=== PATIENT | male | born 1990 | race Caucasian/White ===

== ENCOUNTER 2021-12-06 17:13 | Emergency (ER) | payer BC, OTHER ==
--- OUTSIDE RECORDS SUMMARY | 2021-12-06 17:16 | XMS REPORT | Continuity of Care Document ---
:1990 Author Organization [facility] t Address [address] [place] [address] Care Team Providers Name Role Phone Hortensia Herman MD Primary Care Physician Millender Attending Clinician Unavailable Ralph Krishnan PA-C Attending Clinician Ralph KRISHNAN Attending Clinician Unavailable Varghese HOUSE Attending Clinician Rosa HOUSE Attending Clinician Jacky Attending Clinician Unavailable Payers Payer Name Policy Type Policy Number Effective Date Expiration Date S shayy STUDENT [employer]OURCES - [id number] [facility] ZZZOPEN ACCESS [id number] HMO/POS/EPO/PPO - AETNA Problems Condition Condition Condition Status Onset Resolution Last Treating Co mments Source Name Details Category Date Date Treatment Clinician Date Nephrolith Nephrolith Disease Active 2016-08 B shaun iasis iasis 2- College 00:00: of 00 Medicin e Pituitary Pituitary Disease Active [facility] lesion lesion 12-27 College (HCCode) (HCCode) 00:00: of 00 Medicin e Hypogonadi Hypogonadi Disease Active [facility] sm male sm male - College 00:00: of 00 Medicin e 097 - OTH Diagnosis Active 2014-10-21 [facility] UNSPEC SY 3-05 13:07:00 l 097 - 00:01: [place] OTH 00 UNSPEC SY Active 10/13/2014 [facility] Outpatient Imaging [facility] Kidney Problem Active [facility] Erectile Erectile Problem Active [facility] dysfunctio dysfunctio Niya kes - n, n, Memoria unspecifie unspecifie l d erectile d erectile Ou tpati dysfunctio dysfunctio en t n type n type Clinics Seasonal Seasonal Problem Active [facility] allergies allergies [facility] Itching Itching Problem Active [facility] Morbid Morbid Problem Active [facility] obesity obesity [facility] Body mass Body mass Problem Active [facility] index index [facility] - (BMI) (BMI) Memoria 45.0-49.9, 45.0-49.9, l adult adult [facility] Allergic Allergic Problem Active [facility] rhinitis, rhinitis, Luke s - unspecifie unspecifie Me moria d d l seasonalit seasonalit Ou tpati y, y, ent unspecifie unspecifie Cl inics d trigger d trigger Low Low Problem Active [facility] testostero testostero Niya kes - ne in male ne in male Me moria l [facility] Elevated Elevated Problem Active [facility] BP without BP without Niya kes - diagnosis diagnosis Heriberto howie of of l hypertensi hypertensi Ou tpati on on ent Clinics Pituitary Pituitary Problem Active [facility] adenoma adenoma [facility] Abnormal Abnormal Problem Active [facility] thyroid thyroid [facility] - function function [facility] a test test l [facility] GERD GERD Problem Active [facility] (gastroeso (gastroeso Niya kes - phageal phageal Memoria reflux reflux l disease) disease) Outpat i ent Clinics Erectile Erectile Problem Active [facility] dysfunctio dysfunctio Niya kes - n n [facility] Heart Heart Problem Active [facility] disease disease [facility] Body mass Body mass Problem Active [facility] index index [facility] - (BMI) (BMI) Memoria 40.0-44.9, 40.0-44.9, l adult adult [facility] Dietary Dietary Problem Active [facility] counseling counseling Niya kes - and and Memoria surveillan surveillan l ce ce [facility] Allergies, Adverse Reactions, Alerts Allergy Allergy Status Severity Reaction(s) Onset Inactive Treating Comm ents Source Name Type Date Date Clinician Meperidi Propensi Active Other - See Drops U nivers ne ty to comments 04-14 diastolic ity o f adverse 00:00: blood [place] reaction 00 pressure Medica l s Branch Morphine Propensi Active Swelling Univ ers ty to 04-14 ity of adverse 00:00: [place] reaction 00 Medical s Branch MORPHINE DRUG Active Swelling Univer s INGREDI 04-14 ity of 00:00: [place] 00 Medical Branch MEPERIDI DRUG Active Other-Cmnt Univ ers NE INGREDI 04-14 ity of 00:00: [place] 00 Medical Branch Opioid Propensi Active [facility] Analgesi ty to 06 [facility] cs adverse 00:00: of reaction 00 Medicin s to e drug Demerol Propensi Active Anaphylaxis [facility] ty to 02-03 [facility] adverse 00:00: of reaction 00 Medicin s to e drug Morphine Propensi Active Anaphylaxis [facility] ty to 02-03 [facility] adverse 00:00: of reaction 00 Medicin s to e drug NO KNOWN Drug Active Univers ALLERGIE Class ity [facility] [place] [facility] MORPHINE Adverse Active rash [facility] Reaction [facility] Demerol Adverse Active Info Not [facility] Reaction Available [facility] Social History Social Habit Start Date Stop Date Quantity Comments Source Alcohol intake 2021-11-30 2021-11-30 .14 /d [facility] Col lege of 00:00:00 00:00:00 Medicine Exposure to 2021-11-19 2021-11-29 Not sure [facility] Julian seaman of SARS-CoV-2 (event) 00:00:00 21:25:00 Medici ne Tobacco use and 2020-05-12 2020-05-12 Never used [facility] Co llege of exposure 00:00:00 00:00:00 Medicine Sex Assigned At [birth year] [facility] 00:00:00 00:00:00 Medical Branch Smoking Status Start Date Stop Date Source Unknown if ever smoked [facility] Never smoked tobacco [facility] Dot ege of Medicine Medications Ordered Filled Start Stop Current Ordering Indication Dosage Frequency Signature Comments Components Source Medication Medication Date Date Medication? Clinician (SIG) Name Name clomiPHENE Yes 50mg Take 1 [facility] (CLOMID) 50 4-22 Tablet by Col lege MG tablet 00:00: mouth of 00 daily. Medicin e tadalafil Yes TAKE ONE [facility] (CIALIS) 5 4-22 (1) College MG tablet 00:00: TABLET(S) of 00 BY MOUTH Medicin ONCE A e DAY. clomiPHENE 2020-0 Yes 50mg Take 1 [facility] (CLOMID) 50 9-17 Tablet by Col lege MG tablet 00:00: mouth of 00 daily. Medicin e tadalafil Yes TAKE ONE [facility] (CIALIS) 5 9-17 (1) College MG tablet 00:00: TABLET(S) of 00 BY MOUTH Medicin ONCE A e DAY. clomiPHENE 2020-0 Yes 50mg Take 1 [facility] (CLOMID) 50 9-17 Tablet by Col lege MG tablet 00:00: mouth of 00 daily. Medicin e tadalafil Yes TAKE ONE [facility] (CIALIS) 5 9-17 (1) College MG tablet 00:00: TABLET(S) of 00 BY MOUTH Medicin ONCE A e DAY. clomiPHENE 2021- No 50mg Take 1 [facility] (CLOMID) 50 9-17 04-22 Tablet by Co llege MG tablet 00:00: 00:00 mouth of 00 :00 daily. Medicin e tadalafil 2021- No TAKE ONE [facility] (CIALIS) 5 9-17 04-22 (1) College MG tablet 00:00: 00:00 TABLET(S) of 00 :00 BY MOUTH Medicin ONCE A e DAY. ibuprofen Yes [id number] 600mg Take 1 U nivers 600 mg 9-04 tablet by ity of tablet 00:00: mouth [place] 00 every 6 Medical (six) Branch hours as needed for Pain (scale 4-6). ibuprofen 0 Yes [id number] 600mg Take 1 U nivers 600 mg 9-04 tablet by ity of tablet 00:00: mouth [place] 00 every 6 Medical (six) Branch hours as needed for Pain (scale 4-6). anastrozole 2019-08- No 1mg Take 1 Tab Cuauhtemoc (ARIMIDEX) 004-27 by mouth Dot ege 1 MG tablet 00:00: 00:00 every 7 of 00 :00 days. Medicin e anastrozole 2019-08- No 1mg Take 1 Tab Cuauhtemoc (ARIMIDEX) 004-27 by mouth Dot ege 1 MG tablet 00:00: 00:00 every 7 of 00 :00 days. Medicin e clomiPHENE 2019-08 Yes 50mg Take 1 Tab [facility] (CLOMID) 50 0-02 by mouth Dot ege MG tablet 00:00: daily. of 00 Medicin e clomiPHENE 2019-08- No 50mg Take 1 Tab Cuauhtemoc (CLOMID) 50 0-02 -17 by mouth Col lege MG tablet 00:00: 00:00 daily. of 00 :00 Medicin e clomiPHENE 2019-08- No 50mg Take 1 Tab Cuauhtemoc (CLOMID) 50 0-02 - by mouth Col lege MG tablet 00:00: 00:00 daily. of 00 :00 Medicin e tadalafil Yes TAKE ONE [facility] (CIALIS) 5 - (1) College MG tablet 00:00: TABLET(S) of 00 BY MOUTH Medicin ONCE A e DAY. tadalafil 0 2020- No TAKE ONE [facility] (CIALIS) 5 9-04-27 (1) College MG tablet 00:00: 00:00 TABLET(S) of 00 :00 BY MOUTH Medicin ONCE A e DAY. tadalafil 2019-0 2020- No TAKE ONE [facility] (CIALIS) 5 -04-27 (1) College MG tablet 00:00: 00:00 TABLET(S) of 00 :00 BY MOUTH Medicin ONCE A e DAY. enalapril 2019-0 Yes TAKE ONE [facility] (VASOTEC) 5 9-03 (1) TABLET Co llege MG tablet 00:00: ONCE A DAY of 00 NEEDED Medicin FOR BP > e OR = 150/90. enalapril 2020-0 Yes TAKE ONE [facility] (VASOTEC) 5 9-03 (1) TABLET Co llege MG tablet 00:00: ONCE A DAY of 00 NEEDED Medicin FOR BP > e OR = 150/90. enalapril Yes TAKE ONE [facility] (VASOTEC) 5 04-13 (1) TABLET Co llege MG tablet 00:00: ONCE A DAY of 00 NEEDED Medicin FOR BP > e OR = 150/90. enalapril Yes TAKE ONE [facility] (VASOTEC) 5 9- (1) TABLET Co llege MG tablet 00:00: ONCE A DAY of 00 NEEDED Medicin FOR BP > e OR = 150/90. Enalapril Enalapril Yes Va [address] Maleate Maleate 04-13 Millender Luke s - 00:00: Memoria 00 l Outpati ent Clinics triamcinolo Yes 1 [facility] ne - applicatio [facility] 00:00: n to of 0.1 % cream 00 affected Medi aneta areas e Triamcinolo Triamcinolo Yes Va [address] [facility] ne ne 09-20 Millender applicatio Luke s - Acetonide Acetonide 00:00: n to Mem oria 00 affected l areas Outpati ent Clinics triamcinolo 0 2020- No 1 [facility] ne 09-[address] [facility] ([facility]) 00:00: 00:00 n to of 0.1 % cream 00 :00 affected Medi aneta areas e triamcinolo 2019-2020- No 1 [facility] ne 09-[address] ([facility]) 00:00: 00:00 n to of 0.1 % cream 00 :00 affected Medi aneta areas e clomiPHENE 2019- No 50mg Take 50 mg Cuauhtemoc (CLOMID) 50 8-08 18- by mouth Col lege MG tablet 19:51: 00:00 daily. of 27 :00 Medicin e clomiPHENE Yes 50mg Take 1 Tab [facility] (CLOMID) 50 8- by mouth Dot ege MG tablet 00:00: daily. of Medicin e tadalafil 2018- Yes 5mg Take 1 Tab [facility] (CIALIS) 5 8- by mouth Colle ge MG tablet 00:00: daily. of Medicin e clomiPHENE 2019-0 2020- No 50mg Take 1 Tab Cuauhtemoc (CLOMID) 50 805-12 by mouth Col lege MG tablet 00:00: 00:00 daily. of 00 :00 Medicin e amoxicillin Yes TK 1 T PO B [facility] -clavulanat 7-29 Q 12 H FOR Co llege e 00:00: 10 DAYS - of (AUGMENTIN) 00 TK WF Medicin 875-125 MG e per tablet methylPREDN Yes TK UTD [facility] ISolone 4 7-29 College MG TBPK 00:00: of 00 Medicin e ClomiPHENE ClomiPHENE Yes Va [address] Citrate Citrate [facility] Tadalafil Tadalafil Yes Va [address] Millender as needed [facility] ent [facility] Vital Signs Vital Name Observation Time Observation Value Comments Source Systolic blood 2021-11-30 14:18:00 134 mm[Hg] [facility] Diastolic blood 2021-11-30 14:18:00 86 mm[Hg] [facility] Heart rate 2021-11-30 14:18:00 93 /min [facility] Systolic blood 2021-04-27 14:20:00 138 mm[Hg] [facility] Diastolic blood 2021-04-27 14:20:00 88 mm[Hg] [facility] Heart rate 2021-04-27 14:20:00 91 /min [facility] Body temperature 2021-04-27 14:20:00 36.67 Evelyn [facility] Body height 2021-04-27 14:20:00 185.4 cm [facility] Body weight 2021-04-27 14:20:00 154.677 kg [facility] BMI 2021-04-27 14:20:00 44.99 kg/m2 [facility] Systolic blood 2021-04-14 16:36:00 152 mm[Hg] Melvin reynoldsy [facility] Diastolic blood 2021-04-14 16:36:00 97 mm[Hg] Malissa jyoti [facility] Heart rate 2021-04-14 16:36:00 103 /min [facility] ty [facility] Body temperature 2021-04-14 16:36:00 37.22 Evelyn [facility] ersity of [facility] Respiratory rate 2021-04-14 16:36:00 18 /min Univ ersity of [facility] Body height 2021-04-14 16:36:00 185.4 cm Universi ty of [facility] Body weight 2021-04-14 16:36:00 156.491 kg Universi ty of [facility] BMI 2021-04-14 16:36:00 45.52 kg/m2 Universi ty of [facility] Oxygen saturation in 2021-04-14 16:36:00 98 /min [facility] Arterial blood by [facility] Pulse oximetry Branch Systolic blood 2020-05-12 15:45:00 125 mm[Hg] [facility] of pressure Medicine Diastolic blood 2020-05-12 15:45:00 80 mm[Hg] [facility] pressure Medicine Heart rate 2020-05-12 15:45:00 79 /min [facility] ollege of [facility] Body temperature 2020-05-12 15:45:00 36.78 Evelyn [facility] Respiratory rate 2020-05-12 15:45:00 16 /min [facility] Body height 2020-05-12 15:45:00 [facility].4 [facility] Body weight 2020-05-12 15:45:00 149.687 [facility] BMI 2020-05-12 15:45:00 43.54 kg/m2 [facility] Systolic blood 2019-03-11 19:36:00 131 mm[Hg] [facility] of pressure Medicine Diastolic blood 2019-03-11 19:36:00 77 mm[Hg] [facility] of pressure Medicine Heart rate 2019-03-11 19:36:00 82 /min [facility] ollege of Medicine Body height 2019-03-11 19:36:00 185.4 cm [facility] Body weight 2019-03-11 19:36:00 146.965 kg [facility] BMI 2019-03-11 19:36:00 42.75 kg/m2 [facility] Procedures Procedure Date / Time Performed Performing Clinician Sourc e POCT URINALYSIS 2021-04-27 00:00:00 Jaylen Krishnan [facility] Flavia bower of DIPSTICK Medicine CT ABDOMEN PELVIS WO 2021-04-14 17:55:25 Andra Dawson [facility] CONTRAST Medical Branch COMP. METABOLIC PANEL 2021-04-14 17:42:00 Andra Dawson [facility] ([id number]) Medical Branch CBC WITH DIFF 2021-04-14 17:42:00 Andra Dawson [facility] Medical Branch URINALYSIS 2021-04-14 17:32:00 Andra Dawson [facility] Medical Branch NOTICE OF PRIVACY 2021-04-14 16:21:24 Doctor Unassigned, No [facility] PRACTICES Name Medical Branch CONSENT/REFUSAL FOR 2021-04-14 16:21:07 Doctor Unassigned, No [facility] DIAGNOSIS AND Name Medical Branch TREATMENT Plan of Care Planned Activity Planned Date Details Comments Source Future Scheduled 2021-12-14 TESTOSTERONE-TOTAL(URO Expected: [facility] College Test 00:00:00 DEPT) [code = 2986-8] 12/14/2021 of Med icine (Approximate), Expires: 12/30/2021 Future Scheduled 2021-12-14 SENSITIVE Expected: [facility] Dot ege Test 00:00:00 ESTRADIOL,MALE(URO 12/14/2021 of Medici ne DEPT) [code = 2243-4] (Approximate), Expires: 12/30/2021 Future Scheduled 2021-11-30 COVID-19 Vaccine (1) [facility] Test 09:26:20 [code = COVID-19 of Medicine Vaccine (1)] Future Scheduled 2021-11-30 TETANUS SHOT (ADULT) [facility] Test 09:26:20 [code = TETANUS SHOT of Medi cine (ADULT)] Future Scheduled 2021-11-30 BMI FOLLOW UP PLAN [facility] College Test 09:26:20 [code = BMI FOLLOW UP of Med icine PLAN] Future Scheduled 2021-11-30 Hepatitis C screening Ba [facility] College Test 09:26:20 (procedure) [code = of Medic ine 093876706] Future Scheduled 2021-11-30 Human immunodeficiency [facility] Test 09:26:20 virus screening of Medicine (procedure) [code = 533783078] Future Scheduled 2021-11-30 FLU VACCINE > 6 MONTHS B [facility] College Test 09:26:20 [code = FLU VACCINE > 6 of edicine MONTHS] Future Scheduled 2021-11-30 HEMOGLOBIN AND Ordered: [facility] Co llege Test 09:06:27 HEMATOCRIT, BLOOD [code 11/30/2021 of M edicine = 26099-5] Diagnostic Test 2021-05-11 TESTOSTERONE-TOTAL(URO Expected: [facility] Pending 00:00:00 DEPT) [code = 2986-8] 05/11/2021 of Med icine (Approximate), Expires: 05/27/2021 Diagnostic Test 2021-05-11 SENSITIVE Expected: [facility] ge Pending 00:00:00 ESTRADIOL,MALE(URO 05/11/2021 of Medici ne DEPT) [code = 2243-4] (Approximate), Expires: 05/27/2021 Future Scheduled 2021-05-11 TESTOSTERONE-TOTAL(URO Expected: [facility] Test 00:00:00 DEPT) [code = 2986-8] 05/11/2021 of Med icine (Approximate), Expires: 05/27/2021 Future Scheduled 2021-05-11 SENSITIVE Expected: [facility] ege Test 00:00:00 ESTRADIOL,MALE(URO 05/11/2021 of Medici ne DEPT) [code = 2243-4] (Approximate), Expires: 05/27/2021 Future Scheduled 2021-04-27 COVID-19 Vaccine (1) [facility] Test 09:38:58 [code = COVID-19 of Medicine Vaccine (1)] Future Scheduled 2021-04-27 TETANUS SHOT (ADULT) [facility] Test 09:38:58 [code = TETANUS SHOT of Medi cine (ADULT)] Future Scheduled 2021-04-27 BMI FOLLOW UP PLAN [facility] Test 09:38:58 [code = BMI FOLLOW UP of Med icine PLAN] Future Scheduled 2021-04-27 Hepatitis C screening [facility] Test 09:38:58 (procedure) [code = of Medic ine 767920640] Future Scheduled 2021-04-27 Human immunodeficiency B [facility] Test 09:38:58 virus screening of Medicine (procedure) [code = 049639266] Future Scheduled 2021-04-27 FLU VACCINE > 6 MONTHS B [facility] Test 09:38:58 [code = FLU VACCINE > 6 of edicine MONTHS] Future Scheduled 2021-04-27 COVID-19 Vaccine (1) [facility] Test 09:38:58 [code = COVID-19 of Medicine Vaccine (1)] Future Scheduled 2021-04-27 TETANUS SHOT (ADULT) [facility] Test 09:38:58 [code = TETANUS SHOT of Medi cine (ADULT)] Future Scheduled 2021-04-27 BMI FOLLOW UP PLAN [facility] Test 09:38:58 [code = BMI FOLLOW UP of Med icine PLAN] Future Scheduled 2021-04-27 Hepatitis C screening [facility] Test 09:38:58 (procedure) [code = of Medic ine 352681848] Future Scheduled 2021-04-27 Human immunodeficiency B [facility] Test 09:38:58 virus screening of Medicine (procedure) [code = 098850749] Future Scheduled 2021-04-27 FLU VACCINE > 6 MONTHS B [facility] Test 09:38:58 [code = FLU VACCINE > 6 of edicine MONTHS] Future Scheduled 2021-04-27 BUN/CREATININE RATIO Ordered: [facility] Test 09:36:30 W/EGFR [code = NOCPT] 04/27/2021 of Med icine Future Scheduled 2021-04-27 BUN/CREATININE RATIO Ordered: [facility] Test 09:36:30 W/EGFR [code = NOCPT] 04/27/2021 of Med icine Future Scheduled 2021-04-27 HEMOGLOBIN AND Ordered: [facility] llege Test 09:27:47 HEMATOCRIT, BLOOD [code 04/27/2021 of edicine = 45317-2] Future Scheduled 2021-04-27 HEMOGLOBIN AND Ordered: [facility] llege Test 09:27:47 HEMATOCRIT, BLOOD [code 04/27/2021 of edicine = 60622-3] Future Scheduled TESTOSTERONE, Ordered: [facility] lege Test FREE/TOTAL SHGB [code = 03/11/2019 of edicine NOCPT] Future Scheduled ESTRADIOL [code = Ordered: [facility] Test 2243-4] 03/11/2019 of Medicine Future Scheduled HEMOGLOBIN AND Ordered: [facility] Co llege Test HEMATOCRIT, BLOOD [code 03/11/2019 of M edicine = 80576-8] Future Scheduled TETANUS SHOT (ADULT) [facility] Test [code = TETANUS SHOT of Medi cine (ADULT)] Future Scheduled BMI FOLLOW UP PLAN [facility] Test [code = BMI FOLLOW UP of Med icine PLAN] Future Scheduled HIV SCREENING [code = [facility] Test HIV SCREENING] of Medicine Future Scheduled FLU VACCINE > 6 MONTHS [facility] Test [code = FLU VACCINE > 6 of M edicine MONTHS] Future Scheduled TESTOSTERONE [code = Ordered: [facility] [employer] Test 2986-8] 05/12/2020 of Medicine Future Scheduled HEMOGLOBIN AND Ordered: [facility] llege Test HEMATOCRIT, BLOOD [code 05/12/2020 of M edicine = 87420-0] Future Scheduled ESTRADIOL [code = Ordered: [facility] College Test 2243-4] 05/12/2020 of Medicine Future Scheduled TETANUS SHOT (ADULT) [facility] [employer] Test [code = TETANUS SHOT of Medi cine (ADULT)] Future Scheduled BMI FOLLOW UP PLAN [facility] Test [code = BMI FOLLOW UP of Med icine PLAN] Future Scheduled HEPATITIS C SCREENING [facility] [employer] Test [code = HEPATITIS C of Medic ine SCREENING] Future Scheduled HIV SCREENING [code = [facility] [employer] Test HIV SCREENING] of Medicine Future Scheduled FLU VACCINE > 6 MONTHS [facility] Test [code = FLU VACCINE > 6 of M edicine MONTHS] Future Scheduled ZOSTER VACCINE (1 of 2) [facility] College Test [code = ZOSTER VACCINE of Me dicine (1 of 2)] Encounters Start End Encounter Admission Attending Care Care Encounter Source Date/Time Date/Time Type Type Clinicians Facility Department ID 2021-09-[address] [id number] [place] [address] [facility] 2021-09-05 Outpatient Constanza [facility] [id number] [place]:23 [place] [address] [facility] 2021-09-05 Outpatient Constanza [facility] [id number] 11:06:34 [place] [address] [facility] 2021-11-30 2021-11-30 Office JEREMY Krishnan [id number] [facility] 09:00:00 09:26:25 Visit Jaylen Rosas AMBULATOR [id number] College Y [id number] of [id number] Medi aneta 300 e 2021-04-27 2021-04-27 Office JEREMY KRISHNAN [id number] [facility] 09:13:18 10:05:41 Visit JYALEN AMBULATOR [id number] College Y [id number] of [id number] Medi aneta 300 e 2021-04-14 2021-04-14 Emergency Dawson, [facility] [id number] Univers 11:38:00 15:16:00 Andra Wilde 350.1.13.10 i ty of [place] 4.2.7.2.686 [facility] [id number] [facility] 084 Branch 2021-04-14 2021-04-14 Emergency X [facility] ERT [id number] Univers 11:20:00 11:20:00 ity of [facility] 2020-05-12 2020-05-12 Office JEREMY Krishnan [id number] [facility] 10:32:53 11:14:44 Visit Jaylen Rosas AMBULATOR [id number] College Y [id number] of [id number] [facility] aneta 300 e 2020-04-18 2020-04-18 [facility] [id number] 16:34:00 16:34:00 [facility] Medicine Medicine Outpati ent Clinics 2020-04-13 2020-04-13 [facility] [id number] 16:20:00 16:20:00 [facility] Medicine l Medicine Outpati ent Clinics 2019-10-19 2019-10-19 [facility] [id number] 08:45:00 08:45:00 [facility] Medicine Outpati ent Clinics 2019-09-20 2019-09-20 [facility] [id number] 08:00:00 08:00:00 [facility] Family Medicine l Medicine Outpati ent Clinics 2019-03-11 2019-03-11 Office JEREMY Lee [id number] [place] [address] 14:09:24 14:19:24 Visit Benito AMBULATOR [id number] College Y [id number] of [id number] [facility] 300 e 2016-12-10 2016-12-10 Outpatient IE MARY JO [id number] [facility] 08:00:00 08:00:00 01 l Matthew 2014-10-21 2014-10-22 Outpt Diag nullFlavo [facility] [id number] [facility] 17:57:00 04:59:00 Services r Outpatient 00 l [facility] Results Test Description Test Time Test Comments Results Result Comments Source POCT URINALYSIS DIPSTICK 2021-04-27 00:00:00 Test Item Value Reference Range Interpretation Comme nts COLOR UA (test code = 5778-6) Yellow YELLOW/STRAW CLARITY UA (test code = 90654-9) Clear CLEAR GLUCOSE UA (test code = 5792-7) Negative NEGATIVE BILIRUBIN UA (test code = 5770-3) Negative NEGATIVE KETONES UA (test code = 36878-7) Negative NEGATIVE SPECIFIC GRAVITY UA (test code = 5811-5) 1.005-1.035 BLOOD UA (test code = 5794-3) Negative NEGATIVE PH UA (test code = 5803-2) 5.0-9.0 PROTEIN UA (test code = 5804-0) Trace NEGATIVE UROBILINOGEN UA (test code = 5818-0) 0.02 E.U/DL NORMAL MG/DL LEUKOCYTE ESTERASE UA (test code = 5799-2) Negative NEGATIVE NITRITE UA (test code = 5802-4) Negative NEGATIVE REDUCING SUBSTANCES URINE (test code = 36764-3) NA [facility]GATI VE [facility] [id number] 00:00:00 Test Item Value Reference Range Interpretation Comments COLOR UA (test code = 5778-6) Yellow YELLOW/STRAW CLARITY UA (test code = 86134-2) Clear CLEAR GLUCOSE UA (test code = 5792-7) Negative NEGATIVE BILIRUBIN UA (test code = 5770-3) Negative NEGATIVE KETONES UA (test code = 32428-8) Negative NEGATIVE SPECIFIC GRAVITY UA (test code = 1.005-1.035 5811-5) BLOOD UA (test code = 5794-3) Negative NEGATIVE PH UA (test code = 5803-2) 5.0-9.0 PROTEIN UA (test code = 5804-0) Trace NEGATIVE UROBILINOGEN UA (test code = 0.02 E.U/DL NORMAL MG/DL 5818-0) LEUKOCYTE ESTERASE UA (test code Negative NEGATIVE = 5799-2) NITRITE UA (test code = 5802-4) Negative NEGATIVE REDUCING SUBSTANCES URINE (test NA NEGATIVE code = 20076-8) [facility] [id number] 19:58:23No acute inflammatory or obstructive process identified in the abdomen orpelvis. RL: [id number] AFC: [id number] End of report ORDERING CLINICIAN: ANDRA DAWSON TECHNIQUE: Multidetector helical scanning of the abdomen and pelvis wasperformed without IV or oral contrast. The lack of contrast limitsevaluation of the solid organs, vasculature and GI tract. Coronal andsagittal reformations were obtained. CT scan was performed according to the ALARA (aslow as reasonablyachievable) principal. INDICATION: Abdominal pain COMPARISON:None DISCUSSION:The lung bases are clear. The liver, adrenal glands, gallbladder, spleen,pancreas, kidneys and stomach are unremarkable in their CT appearance. There is no evidence of active colonic or small bowel inflammation orobstruction. The pancreas has been removed. The pelvic organs are unremarkable. There is no pelvic mass or free fluid. There are no acute or suspicious osseous abnormalities. ? [facility], Radiant Results Inft User - 04/14/2021 2:59 PM CDT ORDERING CLINICIAN: ANDRA DAWSONTECHNIQUE: Multidetector helical scanning of the abdomen and pelvis wasperformed without IV or oral contrast. The lack of contrast limitsevaluation of the solid organs, v asculature and GI tract. Coronal andsagittal reformations were obtained.CT scan was performed according to the ALARA (as low as reasonablyachievable) principal.INDICATION: Abdominal painCOMPARISON:NoneDISCUSSION:The lung bases are clear. The liver, adrenal glands, gallbladder, spleen,pancreas, kidneysand stomach are unremarkable in their CT appearance.There is no evidence of active colonic or small bowel inflammation orobstruction. The pancreas has been removed.The pelvic organs are unremarkable. There is no pelvic mass or free fluid.There are no acute or suspicious osseous abnormalities. IMPRESSIONNo acute inflammatory or obstructive process identified in the abdomen orpelvis.RL: [id number]: [id number] of report [facility] WO [id number] 19:58:23No acute inflammatory or obstructive process identified in the abdomen orpelvis. RL: 6190 AFC: [id number] End of report ORDERING CLINICIAN: ANDRA DAWSON TECHNIQUE: Multidetector helical scanning of the abdomen and pelvis wasperformed without IV or oral contrast. The lack of contrast limitsevaluation of the solid organs, vasculature and GI tract. Coronal andsagittal reformations were obtained. CT scan was performed according to the ALARA (aslow as reasonablyachievable) principal. INDICATION: Abdominal pain COMPARISON:None DISCUSSION:The lung bases are clear. The liver, adrenal glands, gallbladder, spleen,pancreas, kidneys and stomach are unremarkable in their CT appearance. There is no evidence of active colonic or small bowel inflammation orobstruction. The pancreas has been removed. The pelvic organs are unremarkable. There is no pel kristy mass or free fluid. There are no acute or suspicious osseous abnormalities. ? [facility], Radiant Results Inft User - 04/14/2021 2:59 PM CDT ORDERING CLINICIAN: ANDRA DAWSONTECHNIQUE: Multidetector helical scanning of the abdomen and pelvis w asperformed without IV or oral contrast. The lack of contrast limitsevaluation of the solid organs, vasculature and GI tract. Coronal andsagittal reformations were obtained.CT scan was performed according to the ALARA (as low as reasonablyachievable) principal.INDICATION: Abdominal painCOMPARISON:NoneD ISCUSSION:The lung bases are clear. The liver, adrenal glands, gallbladder, spleen,pancreas, kidneysand stomach are unremarkable in their CT appearance.There is no evidence of active colonic or small bowel inflammation orobstruction. The pancreas has been removed.The pelvic organs are unremarkable. There is no pelvic mass or free fluid.There are no acute or suspicious osseous abnormalities. IMPRESSIONNo acute inflammatory or obstructive process identified in the abdomen orpelvis.RL: 6190AF: [id number] of report [facility] METABOLIC PANEL ([id number])2021-04-14 18:12:37 Test Item Value Reference Range Interpretation Comments NA (test code = 137 mmol/L 135-145 4775081250) K (test code = 3.9 mmol/L 3.5-5.0 8507738482) CL (test code = 102 mmol/L 98-108 1279365810) CO2 TOTAL (test code = 26 mmol/L 23-31 5018364496) AGAP (test code = 2-16 6167299580) BUN (test code = 13 mg/dL 7-23 6732176355) GLUCOSE (test code = 82 mg/dL 70-110 8075184727) CREATININE (test code = 1.27 mg/dL 0.60-1.25 H 5764898280) TOTAL BILI (test code = 0.4 mg/dL 0.1-1.5 5594884039) CALCIUM (test code = 9.5 mg/dL 8.6-10.6 6563781363) T PROTEIN (test code = 7.5 g/dL 6.3-8.2 5670288761) ALBUMIN (test code = 4.4 g/dL 3.5-5.0 5509792255) ALK PHOS (test code = 49 U/L 34-122 3902664244) ALTv (test code = 36 U/L 5-50 1742-6) AST(SGOT) (test code = 37 U/L 13-40 3490056082) eGFR (test code = mL/min/1.73m2 3741431923) MEJIA (test code = MEJIA) Association of Glomerular Filtration Rate (GFR) and Staging of Kidney Disease* + --+ --+ ------+| GFR (mL/min/1.73 m2) ?| With Kidney Damage ?| ?Without Kidney Damage+ --------+ --------+ +| ?>90 ?| ?Stage one ?| ? Normal ?+ ---+ ---+ -------+| ?60-89 ?| ?Stage two ?| ? Decreased GFR ? + --+ --+ ------+| ?30-59 ?| ?Stage three ?| ? Stage three ? + --+ --+ ------+| ?15-29 ?| ?Stage four ? | ? Stage four ?+ ---+ ---+ -------+| ?<15 (or dialysis) ? ?| ?Stage five ? | ? Stage five ?+ ---+ ---+ -------+ *Each stage assumes the associated GFR level has been in effect for at least three months. ?Stages 1 to 5, with or without kidney disease, indicate chronic kidney disease. Notes: Determination of stages one and two (with eGFR >59mL/min/1.73 m2) requires estimation of kidney damage for at least three months as defined by structural or functional abnormalities of the kidney, manifested by either:Pathological abnormalities or Markers of kidney damage (including abnormalities in the composition of the blood or urine or abnormalities in imaging tests). Lab Interpretation Abnormal (test code = 24542-2) [facility]. METABOLIC PANEL ([id number])2021-04-14 18:12:37 Test Item Value Reference Range Interpretation Comments NA (test code = 137 mmol/L 135-145 0414152360) K (test code = 3.9 mmol/L 3.5-5.0 7059086175) CL (test code = 102 mmol/L 98-108 3843557987) CO2 TOTAL (test code = 26 mmol/L 23-31 1969887445) AGAP (test code = 2-16 3108253287) BUN (test code = 13 mg/dL 7-23 1522811675) GLUCOSE (test code = 82 mg/dL 70-110 1411078600) CREATININE (test code = 1.27 mg/dL 0.60-1.25 H 7047626431) TOTAL BILI (test code = 0.4 mg/dL 0.1-1.5 8929072136) CALCIUM (test code = 9.5 mg/dL 8.6-10.6 0890643017) T PROTEIN (test code = 7.5 g/dL 6.3-8.2 5733906134) ALBUMIN (test code = 4.4 g/dL 3.5-5.0 0826449962) ALK PHOS (test code = 49 U/L 34-122 6131639320) ALTv (test code = 36 U/L 5-50 1742-6) AST(SGOT) (test code = 37 U/L 13-40 0828241396) eGFR (test code = mL/min/1.73m2 3808686535) MEJIA (test code = MEJIA) Association of Glomerular Filtration Rate (GFR) and Staging of Kidney Disease* + --+ --+ ------+| GFR (mL/min/1.73 m2) ?| With Kidney Damage ?| ?Without Kidney Damage+ --------+ --------+ +| ?>90 ?| ?Stage one ?| ? Normal ?+ ---+ ---+ -------+| ?60-89 ?| ?Stage two ?| ? Decreased GFR ? + --+ --+ ------+| ?30-59 ?| ?Stage three ?| ? Stage three ? + --+ --+ ------+| ?15-29 ?| ?Stage four ? | ? Stage four ?+ ---+ ---+ -------+| ?<15 (or dialysis) ? ?| ?Stage five ? | ? Stage five ?+ ---+ ---+ -------+ *Each stage assumes the associated GFR level has been in effect for at least three months. ?Stages 1 to 5, with or without kidney disease, indicate chronic kidney disease. Notes: Determination of stages one and two (with eGFR >59mL/min/1.73 m2) requires estimation of kidney damage for at least three months as defined by structural or functional abnormalities of the kidney, manifested by either:Pathological abnormalities or Markers of kidney damage (including abnormalities in the composition of the blood or urine or abnormalities in imaging tests). Lab Interpretation Abnormal (test code = 35605-7) [facility] [id number] 18:00:00 Test Item Value Reference Range Interpretation Comments APPEARANCE (test code = Clear Clear 5965652636) COLOR (test code = Straw Yellow A 4482052100) PH (test code = 4.8-8.0 4058944555) SP GRAVITY (test code = 1.003-1.030 8770499706) GLU U QUAL (test code = Normal Normal 0957778323) BLOOD (test code = 2+ Negative A 6069741372) KETONES (test code = Negative Negative 3785952160) PROTEIN (test code = Negative Negative 2887-8) UROBILIN (test code = Normal Normal 3857091901) BILIRUBIN (test code = Negative Negative 7508631289) NITRITE (test code = Negative Negative 9152699767) LEUK MICHAEL (test code = 75/uL Negative A 7870751745) RBC/HPF (test code = See_Comment H [Autom ated message] 3522326717) The system mySB[employer] generated this result transmitted ref erence range: 0 - 3 HP F. The reference range was not used to int erpret this result as normal/abnormal . WBC/HPF (test code = See_Comment H [Autom ated message] 5027746672) The system [employer]SB[employer] generated this result transmitted ref erence range: 0 - 5 HP F. The reference range was not used to int erpret this result as normal/abnormal . BACTERIA (test code = Few Negative A 9807532541) SQ EPITH (test code = <1 HPF 1938585607) TRANS EPI (test code = <1 See_Comment [Aut omated message] 6763537706) The system [employer]SB[employer] generated this result transmitted ref erence range: <=1 HPF. The reference range was not used to int erpret this result as normal/abnormal . Lab Interpretation (test Abnormal code = 71186-0) [facility] Test Item Value Reference Range Interpretation Comments APPEARANCE (test code = Clear Clear 1685716036) COLOR (test code = Straw Yellow A 7861531844) PH (test code = 4.8-8.0 2077048364) SP GRAVITY (test code = 1.003-1.030 9879793287) GLU U QUAL (test code = Normal Normal 7414365738) BLOOD (test code = 2+ Negative A 8349235876) KETONES (test code = Negative Negative 7449091735) PROTEIN (test code = Negative Negative 2887-8) UROBILIN (test code = Normal Normal 9334015957) BILIRUBIN (test code = Negative Negative 8206498531) NITRITE (test code = Negative Negative 5446914743) LEUK MICHAEL (test code = 75/uL Negative A 3170085784) RBC/HPF (test code = See_Comment H [Autom ated message] 8686870259) The system [employer]SB[employer] generated this result transmitted ref erence range: 0 - 3 HP F. The reference range was not used to int erpret this result as normal/abnormal . WBC/HPF (test code = See_Comment H [Autom ated message] 3353178960) The system [employer]SB[employer] generated this result transmitted ref erence range: 0 - 5 HP F. The reference range was not used to int erpret this result as normal/abnormal . BACTERIA (test code = Few Negative A 4803962771) SQ EPITH (test code = <1 HPF 5242725926) TRANS EPI (test code = <1 See_Comment [Aut omated message] 4123332479) The system mySB[employer] generated this result transmitted ref erence range: <=1 HPF. The reference range was not used to int erpret this result as normal/abnormal . Lab Interpretation (test Abnormal code = 40670-0) [facility] WITH [id number] 17:53:36 Test Item Value Reference Range Interpretation Comments WBC (test code = See_Comment H [Automated 6690-2) message] The sy stem which generated this result transmitted reference range : 4.20 - 10.70 10*3/?L. The reference range was not used to interpret this result as normal/abnormal . RBC (test code = See_Comment [Automated 789-8) message] The sy stem which generated this result transmitted reference range : 4.26 - 5.52 10*6/?L. The reference range was not used to interpret this result as normal/abnormal . HGB (test code = 15.0 g/dL 12.2-16.4 718-7) HCT (test code = 43.0 % 38.4-49.3 4544-3) MCV (test code = 79.5 fL 81.7-95.6 L 787-2) MCH (test code = 27.7 pg 26.1-32.7 785-6) MCHC (test code = 34.9 g/dL 31.2-35.0 786-4) RDW-SD (test code = 35.6 fL 38.5-51.6 L 75733-8) RDW-CV (test code = 12.6 % 12.1-15.4 788-0) PLT (test code = See_Comment [Automated 777-3) message] The sy stem which generated this result transmitted reference range : 150 - 328 10*3/ ?L. The reference r patricia was not used to interpret this result as normal/abnormal . MPV (test code = 10.8 fL 9.8-13.0 29867-3) NRBC/100 WBC (test See_Comment [Automat ed code = 1147375883) message] The system which generated this result transmitted reference range : 0.0 - 10.0 /100 WBCs. The refer ence range was not u sed to interpret th is result as normal/abnormal . NRBC x10^3 (test code <0.01 See_Comment [Auto mated = 3683248577) message] The s ystem which generated this result transmitted reference range : 10*3/?L. The reference range was not used to interpret this result as normal/abnormal . GRAN MAT (NEUT) % 59.8 % (test code = 770-8) IMM GRAN % (test code 0.50 % = 2268012432) LYMPH % (test code = 29.5 % 736-9) MONO % (test code = 8.4 % 5905-5) EOS % (test code = 1.3 % 713-8) BASO % (test code = 0.5 % 706-2) GRAN MAT x10^3(ANC) 6.59 10*3/uL 1.99-6.95 (test code = 3224943103) IMM GRAN x10^3 (test 0.05 10*3/uL 0.00-0.06 code = 5471013813) LYMPH x10^3 (test code 3.24 10*3/uL 1.09-3.23 H = 731-0) MONO x10^3 (test code 0.92 10*3/uL 0.36-1.02 = 742-7) EOS x10^3 (test code = 0.14 10*3/uL 0.06-0.53 711-2) BASO x10^3 (test code 0.05 10*3/uL 0.01-0.09 = 704-7) Lab Interpretation Abnormal (test code = 28152-0) [facility] WITH [id number] 17:53:36 Test Item Value Reference Range Interpretation Comments WBC (test code = See_Comment H [Automated 0790-2) message] The sy stem which generated this result transmitted reference range : 4.20 - 10.70 10*3/?L. The reference range was not used to interpret this result as normal/abnormal . RBC (test code = See_Comment [Automated 789-8) message] The sy stem which generated this result transmitted reference range : 4.26 - 5.52 10*6/?L. The reference range was not used to interpret this result as normal/abnormal . HGB (test code = 15.0 g/dL 12.2-16.4 718-7) HCT (test code = 43.0 % 38.4-49.3 4544-3) MCV (test code = 79.5 fL 81.7-95.6 L 787-2) MCH (test code = 27.7 pg 26.1-32.7 785-6) MCHC (test code = 34.9 g/dL 31.2-35.0 786-4) RDW-SD (test code = 35.6 fL 38.5-51.6 L 23373-9) RDW-CV (test code = 12.6 % 12.1-15.4 788-0) PLT (test code = See_Comment [Automated 777-3) message] The sy stem which generated this result transmitted reference range : 150 - 328 10*3/ ?L. The reference r patricia was not used to interpret this result as normal/abnormal . MPV (test code = 10.8 fL 9.8-13.0 00800-6) NRBC/100 WBC (test See_Comment [Automat ed code = 2528094398) message] The system which generated this result transmitted reference range : 0.0 - 10.0 /100 WBCs. The refer ence range was not u sed to interpret th is result as normal/abnormal . NRBC x10^3 (test code <0.01 See_Comment [Auto mated = 3977164859) message] The s ystem which generated this result transmitted reference range : 10*3/?L. The reference range was not used to interpret this result as normal/abnormal . GRAN MAT (NEUT) % 59.8 % (test code = 770-8) IMM GRAN % (test code 0.50 % = 2251264236) LYMPH % (test code = 29.5 % 736-9) MONO % (test code = 8.4 % 5905-5) EOS % (test code = 1.3 % 713-8) BASO % (test code = 0.5 % 706-2) GRAN MAT x10^3(ANC) 6.59 10*3/uL 1.99-6.95 (test code = 9012324815) IMM GRAN x10^3 (test 0.05 10*3/uL 0.00-0.06 code = 0339185450) LYMPH x10^3 (test code 3.24 10*3/uL 1.09-3.23 H = 731-0) MONO x10^3 (test code 0.92 10*3/uL 0.36-1.02 = 742-7) EOS x10^3 (test code = 0.14 10*3/uL 0.06-0.53 711-2) BASO x10^3 (test code 0.05 10*3/uL 0.01-0.09 = 704-7) Lab Interpretation Abnormal (test code = 80958-0) [facility] 2019-02-19 13:45:00FINAL REPORT EXAMINATION: MRI of the Sella without and with contrast HISTORY: Pituitary gland lesion, low testosterone levels.COMPARISON: Outside sella turcica MRI of 10/21/2014 .TECHNIQUE: Thin section images of the sella consisting of coronal dynamic T1, sagittal and coronal T1 pre/post contrast, coronal T2. Whole brain DWI/ADC. Postcontrast sagittal T1 ultrathin slice 3D CUBE with coronal and axial reformations.Intravenous Contrast: 10 mL Gadavist. FINDINGS: Pituitary gland: Normal in size , signal intensity and configuration, measuring about 6 mm maximum height at midline and measured in the coronal plane. No hypoenhancing lesions.. Unremarkable neuro and adenohypophysis. Sella Turcica: Normal in size and configuration. Pituitary stalk: Well visualized and unremarkable. Optic chiasm: Well visualized and unremarkable.. Cavernous sinuses: Normal in size andsymmetric. Internal carotid arteries: Normal flow void appearance. Visualized brain parenchyma:Normal, no areas of restricted diffusion. IMPRESSION: Normal pituitary gland, unchanged compared to MRI of 10/21/2014. Signed: Lou Lucas MDReport Verified Date/Time: 02/19/2019 13:45:19 Reading Location: [facility] Reading Room [address] [place] [address] Radiologic examination, chest; 4 or more [id number] 12:08:24CLINICAL INDICATION: R05 CoughTECHNIQUE: PA, right and left oblique and lateral views of the chest.FINDINGS: Comparison study: No prior study.The lungs are clear. There are no infiltrates or effusions.The cardiac silhouette is unremarkable. The allyn and mediastinum are intact.The regional skeleton is intact.IMPRESSION:No active process."
[2021-12-06] MEDS ORDERED: NA CHLORIDE 0.9% 2,000 ML ONE (18:09)
[2021-12-06] MEDS ORDERED: TETRACAINE HCL 0.5% 4ML OPTH ONE (18:09)
--- NOTE | 2021-12-06 20:01 | ER ---
Nurse's Notes [facility] Name: Dmitry Valenzuela Age: 31 yrs Sex: Male : 1990 Arrival Date: 12/06/2021 Time: 17:16 Bed 24 Private MD: Diagnosis: Contact with and (suspected) exposure to hazardous, chiefly nonmedicinal, chemicals Presentation: 12/06 17:22 Chief complaint: Patient states: Pt was exposed to [place] at work today, reports [place] ld1 dust flying into his eyes. Pt went to [facility] and washed out eyes several times with 15 minute eye wash station. Pt reporting continuous eye pain. Coronavirus screen: At this time, the client does not indicate any symptoms associated with coronavirus-19. Ebola Screen: No symptoms or risks identified at this time. Initial Sepsis Screen: Does the patient meet any 2 criteria? No. Patient's initial sepsis screen is negative. Does the patient have a suspected source of infection? No. Patient's initial sepsis screen is negative. Risk Assessment: Do you want to hurt yourself or someone else? Patient reports no desire to harm self or others. Onset of symptoms was December 06, 2021. 17:22 Method Of Arrival: Ambulatory ld1 17:22 Acuity: NEFTALI 4 ld1 Triage Assessment: 17:25 General: Appears in no apparent distress. comfortable, Behavior is calm, cooperative, ld1 appropriate for age. Pain: Denies pain. EENT: Reports chemical exposure to both eyes.. Neuro: Level of Consciousness is awake, alert, obeys commands, Oriented to person, place, time, situation. Cardiovascular: Capillary refill < 3 seconds Patient's skin is warm and dry. Respiratory: Airway is patent Respiratory effort is even, unlabored. GI: Abdomen is round non-distended. : No signs and/or symptoms were reported regarding the genitourinary system. Derm: No signs and/or symptoms reported regarding the dermatologic system. Musculoskeletal: No signs and/or symptoms reported regarding the musculoskeletal system. Historical: - Allergies: 17:25 Morphine; ld1 17:25 Demerol; ld1 - PMHx: 17:25 erectile dysfunction; ld1 - PSHx: 17:25 Heart surgery; Appendectomy; ld1 - Immunization history:: Adult Immunizations up to date, Client reports receiving the 2nd dose of the Covid vaccine. - Social history:: Smoking status: Patient denies any tobacco usage or history of. Patient/guardian denies using alcohol. Screenin:46 Abuse screen: Denies threats or abuse. Denies injuries from another. Nutritional ab2 screening: No deficits noted. Tuberculosis screening: No symptoms or risk factors identified. Fall Risk None identified. Assessment: 17:45 General: Appears in no apparent distress. comfortable, Behavior is calm, cooperative, ab2 appropriate for age. Pain: Complains of pain in right eye and left eye. 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 Gait is steady. Cardiovascular: No deficits noted. Denies chest pain, shortness of breath, Heart tones S1 S2 present Patient's skin is warm and dry. Respiratory: No deficits noted. Airway is patent Respiratory effort is even, unlabored, Respiratory pattern is regular, symmetrical, Breath sounds are clear bilaterally. GI: No deficits noted. No signs and/or symptoms were reported involving the gastrointestinal system. Abdomen is round non-distended. : No deficits noted. No signs and/or symptoms were reported regarding the genitourinary system. EENT: Reports pain in right eye and left eye. Vital Signs: 17:22 BP 174 / 109; Pulse 93; Resp 18; Temp 98.5(TE); Pulse Ox 98% on R/A; Weight 154.67 kg; ld1 Height 6 ft. 1 in. (185.42 cm); Pain 0/10; 20:29 BP 161 / 103; Pulse 84; Resp 17; Pulse Ox 99% on R/A; ab2 17:22 Body Mass Index 44.99 (154.67 kg, 185.42 cm) ld1 Visual Acuity: 18:27 Left Eye Visual acuity 20/20, ; Right Eye Visual acuity 20/25, ; Both Eyes Visual ll1 acuity 20/20; Without Lenses; ED Course: 17:16 Patient arrived in ED. rg4 17:24 Triage completed. ld1 17:25 Arm band placed on right wrist. ld1 17:25 Notified Nurse Practitioner and/or Physician Fitness Worker of to decontamination room for ll1 decon. 17:29 Nasir Fritz is Primary Nurse. ab2 17:35 Patient placed in an exam room, on a stretcher. ll1 17:43 Roberto Clark PA is PHCP. jr8 17:43 Kaitlin Velasquez MD is Attending Physician. jr8 17:46 Patient has correct armband on for positive identification. Bed in low position. Call ab2 light in reach. Side rails up X2. 17:46 No provider procedures requiring assistance completed. ab2 20:00 Gregorio Dickerson MD is Referral Physician. jr8 20:30 Eye irrigation of both eyes w/ Arya lens with 500 ml normal saline, Patient tolerated ab2 well. 20:53 Patient did not have IV access during this emergency room visit. ab2 Administered Medications: 18:38 Drug: Tetracaine Solution (0.5 %) 1 drops Route: Topical; Site: left eye; ab2 Outcome: 20:00 Discharge ordered by . jr8 20:53 Discharged to home ambulatory. ab2 20:53 Condition: good 20:53 Discharge instructions given to patient, Instructed on discharge instructions, follow up and referral plans. Demonstrated understanding of instructions, follow-up care. 20:53 Patient left the ED. ab2 Signatures: Roberto Clark PA PA jr8 Gisel Rudd rg4 Cindi Chang RN RN ll1 Pia Isabel RN RN ld1 Nasir Fritz ab2 Corrections: (The following items were deleted from the chart) 17:26 17:25 Allergies: No Known Allergies; ld1 ld1
--- NOTE | 2021-12-06 20:02 | EDPHYS ---
Physician Documentation [facility] Name: Dmitry Valenzuela Age: 31 yrs Sex: Male : 1990 Arrival Date: 12/06/2021 Time: 17:16 Bed 24 Private MD: ED Physician Kaitlin Velasquez HPI: 12/06 18:27 This 31 yrs old Male presents to ER via Ambulatory with complaints of Chemical Exposure.jr8 18:27 Type of Exposure: Exposed to aerosolized chinik from neighboring work area. Area of jr8 exposure: face, right eye and left eye. Context: The problem was sustained at work. Onset: The symptoms/episode began/occurred acutely, today. Symptoms: eye irritation . The patient has not experienced similar symptoms in the past. The patient has been recently seen by a physician:. Patient was at work site when neighboring facility had chinik dust discharged into air causing a billowing cloud that was wafted by wind toward his site. Stated that he had eye irritation and was sent to safety for wash out. Stated that he washed eyes out on scene and then went to outpatient occupational clinic for f/u. They referred to ED at that time as he was still having some irritation of eyes but overall was feeling much better. Denies breathing problems or skin irritation. . Historical: - Allergies: 17:25 Morphine; ld1 17:25 Demerol; ld1 - PMHx: 17:25 erectile dysfunction; ld1 - PSHx: 17:25 Heart surgery; Appendectomy; ld1 - Immunization history:: Adult Immunizations up to date, Client reports receiving the 2nd dose of the Covid vaccine. - Social history:: Smoking status: Patient denies any tobacco usage or history of. Patient/guardian denies using alcohol. ROS: 19:25 Constitutional: Negative for fever, chills, and weight loss, ENT: Negative for injury, jr8 pain, and discharge, Neck: Negative for injury, pain, and swelling, Cardiovascular: Negative for chest pain, palpitations, and edema, Respiratory: Negative for shortness of breath, cough, wheezing, and pleuritic chest pain, Abdomen/GI: Negative for abdominal pain, nausea, vomiting, diarrhea, and constipation, Back: Negative for injury and pain, MS/Extremity: Negative for injury and deformity, Skin: Negative for injury, rash, and discoloration, Neuro: Negative for headache, weakness, numbness, tingling, and seizure. 19:25 Eyes: Positive for pain, Negative for blurry vision, itching, photophobia, redness, swelling, tearing, vision loss. Exam: 19:25 Constitutional: This is a well developed, well nourished patient who is awake, alert, jr8 and in no acute distress. Head/Face: Normocephalic, atraumatic. Eyes: Pupils equal round and reactive to light, extra-ocular motions intact. Lids and lashes normal. Conjunctiva and sclera are non-icteric and not injected. Cornea within normal limits. Periorbital areas with no swelling, redness, or edema. ENT: Nares patent. No nasal discharge, no septal abnormalities noted. Tympanic membranes are normal and external auditory canals are clear. Oropharynx with no redness, swelling, or masses, exudates, or evidence of obstruction, uvula midline. Mucous membranes moist. Neck: Trachea midline, no thyromegaly or masses palpated, and no cervical lymphadenopathy. Supple, full range of motion without nuchal rigidity, or vertebral point tenderness. No Meningismus. Cardiovascular: Regular rate and rhythm with a normal S1 and S2. No gallops, murmurs, or rubs. Normal PMI, no JVD. No pulse deficits. Respiratory: Lungs have equal breath sounds bilaterally, clear to auscultation and percussion. No rales, rhonchi or wheezes noted. No increased work of breathing, no retractions or nasal flaring. Abdomen/GI: Soft, non-tender, with normal bowel sounds. No distension or tympany. No guarding or rebound. No evidence of tenderness throughout. Skin: Warm, dry with normal turgor. Normal color with no rashes, no lesions, and no evidence of cellulitis. MS/ Extremity: Pulses equal, no cyanosis. Neurovascular intact. Full, normal range of motion. Neuro: Awake and alert, GCS 15, oriented to person, place, time, and situation. Cranial nerves II-XII grossly intact. Motor strength 5/5 in all extremities. Sensory grossly intact. Vital Signs: 17:22 BP 174 / 109; Pulse 93; Resp 18; Temp 98.5(TE); Pulse Ox 98% on R/A; Weight 154.67 kg; ld1 Height 6 ft. 1 in. (185.42 cm); Pain 0/10; 20:29 BP 161 / 103; Pulse 84; Resp 17; Pulse Ox 99% on R/A; ab2 17:22 Body Mass Index 44.99 (154.67 kg, 185.42 cm) ld1 Visual Acuity: 18:27 Left Eye Visual acuity 20/20, ; Right Eye Visual acuity 20/25, ; Both Eyes Visual ll1 acuity 20/20; Without Lenses; MDM: 17:44 Patient medically screened. jr8 19:59 Data reviewed: vital signs, nurses notes. Data interpreted: Pulse oximetry: on room air jr8 is 98 %. Interpretation: normal. Counseling: I had a detailed discussion with the patient and/or guardian regarding: the historical points, exam findings, and any diagnostic results supporting the discharge/admit diagnosis, the need for outpatient follow up, an opthalmologist, to return to the emergency department if symptoms worsen or persist or if there are any questions or concerns that arise at home. ED course: Patient markedly better after irrigation with Arya lenses here. Patient's vision unchanged and noninjected. No corneal injury present on examination. We will have him follow-up with ophthalmology. Knows to come back if worsening point time.. 12/06 17:56 Order name: Visual Acuity; Complete Time: 18:27 jr8 12/06 17:59 Order name: [facility]. Order: Arya lese to each eye with NS 1000ml bag to each eye; jr8 Complete Time: 18:27 Administered Medications: 18:38 Drug: Tetracaine Solution (0.5 %) 1 drops Route: Topical; Site: left eye; ab2 Disposition Summary: 12/06/21 20:00 Discharge Ordered Location: Home jr8 Problem: new jr8 Symptoms: have improved jr8 Condition: Stable jr8 Diagnosis - Contact with and (suspected) exposure to hazardous, chiefly nonmedicinal, chemicals jr8 Followup: jr8 - With: Gregorio Dickerson MD - When: 2 - 3 days - Reason: Recheck today's complaints, Continuance of care, Re-evaluation by your physician Discharge Instructions: - Discharge Summary Sheet jr8 - Chemical Burn of the Eyes, Adult jr8 Forms: - Medication Reconciliation Form jr8 - Thank You Letter jr8 - Antibiotic Education jr8 - Prescription Opioid Use jr8 - Work release form ab2 Signatures: Roberto Clark PA PA jr8 Pia Isabel RN RN ld1 Nasir Fritz ab2 Corrections: (The following items were deleted from the chart) 17:26 17:25 Allergies: No Known Allergies; ld1 ld1
[2021-12-06 23:26] VITALS: BP 108/66; TEMP 98.8
[2021-12-06 23:27] VITALS: O2SAT 99
== END 2021-12-06 20:53 | disposition home or self-care (01) ==
LOC: ER 17:13
DX: Z77.098 Contact with and (suspected) exposure to other hazardous, chiefly nonmedicinal, chemicals (principal); Z88.5 Allergy status to narcotic agent
CPT/HCPCS: 99283; J7030